=== PATIENT | male | born 2000 | race African-American/Black ===

== ENCOUNTER 2020-12-07 23:21 | Emergency (ER) | payer SELFPAY | END 2020-12-08 01:11 | disposition home or self-care (01) | LOC: CSHERS 23:21 | DX: S90.211A Contusion of right great toe with damage to nail, initial encounter (principal); W20.8XXA Other cause of strike by thrown, projected or falling object, initial encounter | CPT/HCPCS: 11740 ==

== ENCOUNTER 2020-12-14 21:34 | Emergency (ER) | payer SELFPAY ==
[2020-12-14 22:06] LABS: Bilirubin Neg (Negative); Blood, Urine Negative (Negative); Clarity Clear (Clear); Glucose, Urine (Dipstick) Normal (Negative); Ketone, Urine Negative (Negative); Leukocyte Negative (Negative); Nitrite Negative (Negative); Protein, Urine (Dipstick) 30 mg/dl (Neg-Trace)
[2020-12-14 22:17] LABS: Bacteria/HPF 1+ HPF (None Seen); RBC/HPF 0-3 HPF (0-3); Squamous Epithelial 0-3 HPF (0-3); WBC/HPF 0-3 HPF (0-3)
[2020-12-14 23:17] LABS: #Eosinphils 0.2 10x3/uL (0.0-0.5); #Monocytes 0.6 10x3/uL (0.0-1.1); %Basophils 0.5 % (0.0-2.0); %Lymphocytes 23.7 % (18.0-47.0); %Monocytes 7.8 % (0.0-10.0); %Neutrophils 65.9 % (40.0-75.0); Hemoglobin 14.7 g/dL (13.5-17.5); Mean Corpuscular HGB CONC 32.8 g/dL (32.0-36.0); Mean Corpuscular Hemoglobin 29.8 pg (27.0-33.0); Mean Corpuscular Volume 90.9 fl (81.2-95.1); Mean Platelet Volume 9.2 fl (7.4-10.4); Platelet Count 228 10x3/uL (150-450); RBC Distribution Width 12.1 % (11.5-14.5); Red Blood Cell (RBC) Count 4.93 10x6/uL (4.32-5.72); White Blood Cell (WBC) Count 7.5 10x3/uL (3.5-10.5)
[2020-12-14] MEDS ORDERED: Ketorolac Tromethamine 30 MG/ML VIAL ONE (23:26)
[2020-12-14] MEDS ORDERED: Metoclopramide HCl 10 MG/2 ML VIAL ONE (23:26)
[2020-12-14] MEDS ORDERED: diphenhydrAMINE 50 MG/ML VIAL ONE (23:26)
[2020-12-14] MEDS ORDERED: Magnesium 2 GM/50 ML BAG (IN WATER) ONE (23:27)
[2020-12-14] MEDS ORDERED: Acetaminophen 500 MG TAB ONE (23:27)
[2020-12-14 23:29] LABS: ALT (SGPT) 17 U/L (8-55); AST (SGOT) 25 U/L (5-34); Albumin 4.5 g/dL (3.5-5.0); Alkaline Phosphatase 67 U/L (40-110); Anion Gap 13 mmol/L (10-20); BUN (Urea Nitrogen) 14 mg/dL (8.9-20.6); Bilirubin, Total 0.6 mg/dL (0.2-1.2); Calc. Creatinine Clearance 0 mL/min (70-130); Calcium 9.4 mg/dL (7.8-10.44); Carbon Dioxide 26 mmol/L (22-29); Chloride 104 mmol/L (98-107); Globulin 3.1 g/dL (2.4-3.5); Glucose 84 mg/dL (70-105); Lipase 15 U/L (8-78); Potassium 4.2 mmol/L (3.5-5.1); Protein, Total 7.6 g/dL (6.0-8.3); Sodium 139 mmol/L (136-145)
== END 2020-12-15 00:05 | disposition home or self-care (01) ==
LOC: CSHERS 21:34
DX: R51.9 Headache, unspecified (principal); R10.11 Right upper quadrant pain
CPT/HCPCS: 76705; 80053; 81003; 81015; 83690; 85025; 96365; 96375; J1200; J1885; J2765; J3475

== ENCOUNTER 2022-01-19 15:28 | Emergency (ER) | payer BC ==
[2022-01-19] MEDS ORDERED: Dexamethasone 4 mg/ml Vial ONE (16:14)
== END 2022-01-19 16:18 | disposition home or self-care (01) ==
LOC: CSHERS 15:28
DX: J11.1 Influenza due to unidentified influenza virus with other respiratory manifestations (principal); Z20.822 Contact with and (suspected) exposure to COVID-19
CPT/HCPCS: 99283; J1100; U0003; U0005

== ENCOUNTER 2022-04-28 01:58 | Emergency (ER) | payer BC ==
[2022-04-28 02:19] LABS: Bilirubin Neg (Negative); Blood, Urine 50 (Negative); Clarity Cloudy (Clear); Glucose, Urine (Dipstick) Normal (Negative); Ketone, Urine Negative (Negative); Leukocyte 500 (Negative); Nitrite Negative (Negative); Protein, Urine (Dipstick) 30 mg/dl (Neg-Trace); Specific Gravity, Urine 1.015 (1.002-1.036); pH, Urine 6.5 (5.0-9.0)
[2022-04-28 02:27] LABS: Bacteria/HPF Rare-Few HPF (None Seen); Squamous Epithelial 0-3 HPF (0-3); WBC/HPF Greater Than 50 HPF (0-3)
[2022-04-28] MEDS ORDERED: Sterile Water 10 ML ONE (03:40)
[2022-04-28] MEDS ORDERED: cefTRIAXone\\ROCEPHIN 500 MG VIAL ONE (03:40)
[2022-04-28 17:56] LABS: Chlam.trachomatis by PCR,Urine Not Detected (NotDetected)
== END 2022-04-28 03:55 | disposition home or self-care (01) ==
LOC: CSHERS 01:58
DX: A64 Unspecified sexually transmitted disease (principal)
CPT/HCPCS: 81003; 81015; 87491; 87591; 96372; 99283; J0696

== ENCOUNTER 2025-06-16 19:12 | Emergency (ER) | payer SELFPAY ==
[2025-06-16 19:53] LABS: Glucose, Urine (Dipstick) Normal (Negative); Leukocyte 500 (Negative); Protein, Urine (Dipstick) 30 mg/dl (Neg-Trace); Specific Gravity, Urine 1.010 (1.005-1.030)
[2025-06-16] MEDS ORDERED: cefTRIAXone (ROCEPHIN) 500 MG VIAL ONE (20:00)
[2025-06-16 20:43] LABS: CAUTI Indications for Culture Dysuria,urgency,freq; RBC/HPF 0-3 HPF (0-3); WBC/HPF Greater Than 50 HPF (0-3)
[2025-06-16 20:44] LABS: Bacteria/HPF 1+ HPF (None Seen); Urine Culture Reflex Yes Yes
[2025-06-17 13:21] LABS: Chlam.trachomatis by PCR,Urine DETECTED (NotDetected); GC N.gonorrhoeae PCR,UrineVOID DETECTED (NotDetected)
== END 2025-06-16 20:05 | disposition home or self-care (01) ==
LOC: CSHERS 19:12
DX: R36.9 Urethral discharge, unspecified (principal)
CPT/HCPCS: 81001; 87086; 87491; 87591; 96372; 99283; J0696